=== PATIENT | female | born 1930 | race Caucasian/White ===

== ENCOUNTER → 2017-01-19 | Outpatient (CLI) | payer MEDICARE, BC ==
[2013-12-26 10:24] VITALS: BP 147/63
[~2017-01-19] MED LIST: ALBU2.5V14 NEB; ALBU25PO2; ALBU8.5H6 INH; AMLO5TAB4 PO; DIAZEPAM10 MG PO; EZET10TA18 PO; FLUT16SP2 NS; FLUT1DIS IH; MONT10TA6 PO; OLME1TAB21 PO; OMEP40CA5 PO; POLY17PO29 PO; metformin PO
[2017-01-19 11:51] LABS: HEMATOCRIT 28.3 % (36.0-47.0); RETIC COUNT 0.9 % (0.5-2.5)
[2017-01-19 12:12] LABS: % SAT IRON 7 % (15-34); IRON,SERUM 27 ug/dL (50-170)
== END | disposition home or self-care (01) ==
LOC: LAB 11:05
PROVIDERS: ATTEND Internal Medicine Cardiovascular Disease
DX: D64.9 Anemia, unspecified (principal); R53.83 Other fatigue
CPT/HCPCS: 36415; 82607; 83540; 83550; 85014; 85018; 85045

== ENCOUNTER → 2017-02-28 | Outpatient (CLI) | payer MEDICARE, BC ==
[2013-12-26 10:24] VITALS: BP 147/63
[2017-02-28 12:38] LABS: BASO % 1 % (0-3); EOS % 4 % (0-3); HEMATOCRIT 26.6 % (36.0-47.0); HEMOGLOBIN 8.3 g/dL (12.0-15.5); LYMPH % 21 % (24-48); MEAN CORPUSCULAR HEMOGLOBIN 25 pg (25-35); MEAN CORPUSCULAR HGB CONC 31 g/dL (31-37); MEAN CORPUSCULAR VOLUME 81 fL (79-100); MONO % 9 % (0-9); NEUT % 65 % (31-73); PLATELET COUNT 222 x10^3/uL (140-400); RED CELL DISTRIBUTION WIDTH 18.3 % (11.5-14.5); WHITE BLOOD COUNT 4.9 x10^3/uL (4.0-11.0)
[2017-03-01 15:00] LABS: RETIC COUNT 1.6 % (0.5-2.5)
--- NOTE | 2017-03-02 09:40 | PATHOLOGY ---
PATHOLOGY REPORT * * * * * * * * FINAL DIAGNOSIS: Peripheral smear: - Normocytic normochromic anemia, moderate, with mild anisopoikilocytosis. See comment. COMMENT: The peripheral smear shows a moderate normocytic normochromic anemia with mild anisocytosis and mild poikilocytosis comprised of several ovalocytes, spiculated red blood cells (variant acanthocytes) and red blood cell fragments. Would recommend serum iron studies to include serum ferritin to differentiate between iron deficiency anemia, anemia of chronic disease, and sideroblastic anemia. Variant acanthocytes may be seen with poor nutritional status. With the presence of a few red blood cell fragments, I cannot completely exclude the possibility of a red cell fragmentation disorder. Please correlate clinically. (JPM:mml:mgr; 03/01/2017) REPORT ELECTRONICALLY SIGNED BY: Gerald Pedroza M.D. DATE/TIME: 03/02/2017 09:39 * * * * * * * * MICROSCOPIC DESCRIPTION: Laboratory Data: The CBC results are dated 02/28/17. The WBC count is 4.9 K/CMM, and the automated WBC differential reveals 65% neutrophils, 21% lymphs, 9% monos, 4% eos, and 1% baso. The RBC count is 3.30 M/CMM, hemoglobin 8.3 G/DL, hematocrit 26.6%, MCV 81 FL, MCH 25 PG, MCHC 31 G/DL, and the RDW is 18.3%. The platelet count is 222 K/CMM. Peripheral Smear: The peripheral smear is reviewed. The WBC count is low normal. The WBC differential reveals a predominance of segmented neutrophils, with smaller populations of lymphocytes and monocytes and a few eosinophils noted. Neutrophils do not show dysplastic changes. There is no significant neutrophilic left shift. There are no circulating blasts. There is no leukoerythroblastic reaction. The lymphocyte population consists predominantly of small lymphocytes. Red blood cells predominantly appear normochromic. They are a few hypochromic red blood cells. Red blood cells show mild anisocytosis. Red blood cells show mild poikilocytosis comprised of several ovalocytes, spiculated red blood cells (variant acanthocytes), and red blood cell fragments. Platelets appear normal in number with a few large platelets noted. GROSS PATHOLOGY: Received are two Cardenas stained peripheral blood smears, labeled, Loli Damon. INITIAL CPT CODE(S): NC Professional services performed by [facility] at [facility] [address] [place] [address] Technical services performed by [facility] at [address] [place] [address], [address] [address]. cc: Dr. Plasencia SPECIMEN(S) RECEIVED: A.Peripheral smear review requested by Dr. Plasencia CLINICAL HISTORY: Anemia, physician request review of PBS, requested by Dr. Chaz Plasencia, review RBC and WBC morphology PATIENT: LOLI DAMON /AGE: 1 1930 (Age: 86) PATIENT #: [id number] ALT CASE #: SPECIMEN COLLECTION DATE: 02/28/2017 SPECIMEN RECEIVED DATE: 02/28/2017 [facility] - [address] [address] - PHONE: [phone] * * * END OF REPORT * * *
== END | disposition home or self-care (01) ==
LOC: LAB 11:39
PROVIDERS: ATTEND Internal Medicine Cardiovascular Disease
DX: D64.9 Anemia, unspecified (principal)
CPT/HCPCS: 36415; 82746; 85025; 85045

== ENCOUNTER 2018-05-12 16:27 | Emergency (ER) | payer MEDICARE, BC ==
[~2018-05-12] VITALS: Ht 160 cm; Wt 56.2 kg
[~2018-05-12 16:27] MED LIST changes: +DIPH-121 PO; +DOXA2TAB2 PO
[2018-05-12 17:48] LABS: BASO # 0.1 x10^3/uL (0.0-0.2); BASO % 1 % (0-3); EOS # 0.2 x10^3/uL (0.0-0.7); EOS % 4 % (0-3); HEMATOCRIT 38.1 % (36.0-47.0); HEMOGLOBIN 12.7 g/dL (12.0-15.5); LYMPH # 1.1 x10^3/uL (1.0-4.8); LYMPH % 21 % (24-48); MEAN CORPUSCULAR HEMOGLOBIN 30 pg (25-35); MEAN CORPUSCULAR HGB CONC 33 g/dL (31-37); MEAN CORPUSCULAR VOLUME 89 fL (79-100); MONO # 0.5 x10^3/uL (0.0-1.1); MONO % 9 % (0-9); NEUT # 3.3 x10^3uL (1.8-7.7); NEUT % 65 % (31-73); PLATELET COUNT 248 x10^3/uL (140-400); RED BLOOD COUNT 4.28 x10^6/uL (3.50-5.40); RED CELL DISTRIBUTION WIDTH 15.3 % (11.5-14.5); WHITE BLOOD COUNT 5.1 x10^3/uL (4.0-11.0)
[2018-05-12 18:29] LABS: CALCIUM 10.5 mg/dL (8.5-10.1); GFR 52.2
[2018-05-12 18:30] LABS: POTASSIUM 4.4 mmol/L (3.5-5.1)
[2018-05-12 18:36] LABS: ALBUMIN 4.1 g/dL (3.4-5.0); ALBUMIN/GLOBULIN RATIO 0.9 (1.0-1.7); TOTAL BILIRUBIN 0.3 mg/dL (0.2-1.0); TOTAL PROTEIN 8.7 g/dL (6.4-8.2)
[2018-05-12 19:08] VITALS: BP 148/63
--- NOTE | 2018-05-12 19:22 | PHYS DOC ---
Past Medical History Past Medical History: Diabetes-Type II, GERD, High Cholesterol, Hypertension Past Surgical History: Hysterectomy, Other Additional Past Surgical Histo: L)rotator cuff, Ectopic. Alcohol Use: Rarely Drug Use: None Adult General Chief Complaint Chief Complaint: HYPERTENSION HPI HPI Patient is a 87 year old AA female who presents to the ER with complaints of high blood pressure today. Pt states that her blood pressure was over 200 systolic prior to arrival. She currently denies any headache, vision changes, numbness, tingling, weakness, chest pain, shortness of breath, or palpitations. She states that she has been taking her medications as prescribed at home. Pt denies any recent fall or head injury. Review of Systems Review of Systems Constitutional: Denies fever or chills [] Eyes: Denies change in visual acuity or eye pain [] HENT: Denies nasal congestion or sore throat [] Respiratory: Denies cough or shortness of breath [] Cardiovascular: Denies chest pain or palpitations GI: Denies abdominal pain, nausea, vomiting, or diarrhea [] Musculoskeletal: Denies back pain or joint pain [] Integument: Denies rash or skin lesions [] Neurologic: Denies headache, focal weakness or sensory changes [] Complete systems were reviewed and found to be within normal limits, except as documented in this note. Allergies Allergies Allergies Coded Allergies Type Severity Reaction Last Updated Verified No Known Drug Allergies 12/26/13 No Physical Exam Physical Exam Constitutional: Well developed, well nourished, no acute distress, non-toxic appearance. [] HENT: Normocephalic, atraumatic, bilateral external ears normal, nose normal. [] Eyes: PERRLA, conjunctiva normal, no discharge. [] Neck: Normal range of motion Cardiovascular:Heart rate regular rhythm, no murmur [] Lungs & Thorax: Bilateral breath sounds clear to auscultation [] Abdomen: Bowel sounds normal, soft, no tenderness, no masses, no pulsatile masses. [] Skin: Warm, dry, no erythema, no rash. [] Extremities: No cyanosis, ROM intact, no edema. [] Neurologic: Alert and oriented X 3, normal motor function, normal sensory function, no focal deficits noted. [] Psychologic: Affect normal, judgement normal, mood normal. [] Current Patient Data Vital Signs Vital Signs Date Time Temp Pulse Resp B/P (MAP) Pulse Ox O2 Delivery O2 Flow Rate FiO2 05/12/18 19:08 58 16 96 05/12/18 16:58 98.6 215/88 (130) Room Air 98.6 Lab Values Laboratory Tests Test 05/12/18 17:39 05/12/18 18:05 White Blood Count 5.1 x10^3/uL (4.0-11.0) Red Blood Count 4.28 x10^6/uL (3.50-5.40) Hemoglobin 12.7 g/dL (12.0-15.5) Hematocrit 38.1 % (36.0-47.0) Mean Corpuscular Volume 89 fL (79-100) Mean Corpuscular Hemoglobin 30 pg (25-35) Mean Corpuscular Hemoglobin Concent 33 g/dL (31-37) Red Cell Distribution Width 15.3 % (11.5-14.5) H Platelet Count 248 x10^3/uL (140-400) Neutrophils (%) (Auto) 65 % (31-73) Lymphocytes (%) (Auto) 21 % (24-48) L Monocytes (%) (Auto) 9 % (0-9) Eosinophils (%) (Auto) 4 % (0-3) H Basophils (%) (Auto) 1 % (0-3) Neutrophils # (Auto) 3.3 x10^3uL (1.8-7.7) Lymphocytes # (Auto) 1.1 x10^3/uL (1.0-4.8) Monocytes # (Auto) 0.5 x10^3/uL (0.0-1.1) Eosinophils # (Auto) 0.2 x10^3/uL (0.0-0.7) Basophils # (Auto) 0.1 x10^3/uL (0.0-0.2) Sodium Level 143 mmol/L (136-145) Potassium Level 4.4 mmol/L (3.5-5.1) Chloride Level 103 mmol/L (98-107) Carbon Dioxide Level 30 mmol/L (21-32) Anion Gap 10 (6-14) Blood Urea Nitrogen 18 mg/dL (7-20) Creatinine 1.0 mg/dL (0.6-1.0) Estimated GFR (Cockcroft-Gault) 52.2 BUN/Creatinine Ratio 18 (6-20) Glucose Level 107 mg/dL (70-99) H Calcium Level 10.5 mg/dL (8.5-10.1) H Total Bilirubin 0.3 mg/dL (0.2-1.0) Aspartate Amino Transferase (AST) 23 U/L (15-37) Alanine Aminotransferase (ALT) 17 U/L (14-59) Alkaline Phosphatase 71 U/L (46-116) Troponin I Quantitative < 0.017 ng/mL (0.000-0.055) Total Protein 8.7 g/dL (6.4-8.2) H Albumin 4.1 g/dL (3.4-5.0) Albumin/Globulin Ratio 0.9 (1.0-1.7) L Laboratory Tests 05/12/18 17:39 Laboratory Tests 05/12/18 18:05 EKG EKG sinus rhythym with leftward axis No STEMI read by Dr. Howell Radiology/Procedures Radiology/Procedures [] Course & Med Decision Making Course & Med Decision Making Pertinent Labs and Imaging studies reviewed. (See chart for details) Dx: Hypertension Pt's blood pressure decreased without any medications being administered. Pt was monitored for several hours in the ER and her blood pressure remained less than 160 systolic throughout the visit with the exception of one abnormal reading when patient was triaged. EKG was negative for STEMI. CBC unremarkable, CMP unremarkable, Troponin <0.017. Pt reported feeling better. Final BP was 148/ 63, pt was instructed to check her BP regularly and to follow up with PCP this week, return to ER if symptoms worsened or if she develops a headache. Pt verbalized an understanding of DC instructions and was in agreement with POC [] Dragon Disclaimer Dragon Disclaimer This electronic medical record was generated, in whole or in part, using a voice recognition dictation system. Departure Departure Impression: Primary Impression: Hypertension Disposition: 01 HOME, SELF-CARE Condition: IMPROVED Referrals: JUDY NG MD (PCP) Patient Instructions: Hypertension Additional Instructions: Your lab work and EKG were unremarkable today. Your blood pressure was 148/63. Follow up with your Primary care doctor for further evaluation of your blood pressure medications. Return to the ER if your symptoms worsen. Problem Qualifiers Primary Impression: Hypertension Hypertension type: unspecified Qualified Codes: I10 - Essential (primary) hypertension BINA ESPINO APRN May 12, 2018 19:22
--- NOTE | 2018-05-14 08:14 | EKG ---
[facility] [address] [place] [address] Test Date: 2018-05-12 Test Time: 17:29:48 Pat Name: MONROE DAMON Department: Room: Gender: Female [employer] Sewing Machine Operator: : [id number] Requested By: BINA ESPINO Order Number: [id number] Reading MD: Kenn Buitrago Measurements Intervals [place] Rate: 68 P: 49 ID: [id number] QRS: -15 QRSD: 76 T: 35 QT: 388 QTc: 413 Interpretive Statements SINUS RHYTHM LEFTWARD AXIS Electronically Signed On 05-15-2018 8:50:54 [employer] by Kenn Buitrago
== END 2018-05-12 19:20 | disposition home or self-care (01) ==
LOC: ER 16:27
DX: I10 Essential (primary) hypertension (principal); K21.9 Gastro-esophageal reflux disease without esophagitis; E78.00 Pure hypercholesterolemia, unspecified; E11.9 Type 2 diabetes mellitus without complications
CPT/HCPCS: 36415; 80053; 84484; 85025; 93005; 99284-25